=== PATIENT | male | born 1980 ===

== ENCOUNTER 2019-02-26 12:05 | Outpatient (CLI) | payer BC, SELFPAY ==
--- NOTE | 2019-02-26 09:00 | DI.US_ITS ---
SYMPTOM/DIAGNOSIS: DISTAL MEDIAL FIRM MASS 3 X 1.5 CM EPITROCHLEAR NOTE? MASS SOFT TISSUE RT UE R22.31 ULTRASOUND SOFT TISSUES MEDIAL ASPECT RIGHT ELBOW: There is an apparent complex vascular mass on the right medial distal humerus measuring 1.4 x 0.6 x 1.2 cm which may represent a lymph node. There is some peripheral edema in this region. SUMMARY: Question lymph node vs small mass in the epitrochlear soft tissues of the right medial elbow.
== END 2019-02-26 12:25 ==
PROVIDERS: PCP Family Medicine; Visit Provider Family Medicine
DX: R22.31 Localized swelling, mass and lump, right upper limb (principal); M79.89 Other specified soft tissue disorders
CPT/HCPCS: 76881

== ENCOUNTER 2019-03-31 09:43 | Emergency (ER) | payer BC, SELFPAY ==
[2019-03-31 09:46] VITALS: BP 139/90; PULSE 81; RESP 16; TEMP 36.5; O2SAT 98
--- NOTE | 2019-03-31 10:08 | ED.GENADUL_ITS ---
Discharge Plan Disposition Patient Disposition: HOME Condition: Stable Discharge Details Chief Complaint: AnimalBite Clinical Impression: Dog bite, Encounter for prophylactic rabies immune globin Primary Care Provider: Roni Penaloza ED Provider: Marni Stevenson Home Meds and New Rx's Prescriptions: New amoxicillin-pot clavulanate [Augmentin] 875-125 mg tablet 1 tab PO BID 10 Days Qty: 20 RF: 0 Discharge Instructions Instructions: Rabies Immune Globulin (Injection), Animal Bite (ED), Rabies Vaccine (ED) Additional Instructions: Keep wound clean and dry. Apply the topical antibiotic ointment twice daily as needed. Return to the infusion center on the dates indicated on your form for the additional rabies vaccine injections. Follow-up with your primary care doctor next week for reevaluation. Return immediately to the emergency department if you develop any worsening or new concerning symptoms. Discharge Data Discharge Physician: Marni Stevenson Medical Decision Making 38-year-old male with no significant past medical history who presents for evaluation of dog bite and possible rabies immunization. Patient was scratched on his forearms and bit on his left hand by an unknown dog while riding his bike yesterday. He states the dog appeared to be acting appropriately and appears consistent with a provoked dog bite as he was attempting to pull the dog away from two little kids passing by. Patient's last tetanus 2011. Patient was seen at [facility] this morning and advised to come to the ER for evaluation and possible rabies vaccine. Discussed with patient at length that there is a low risk of transmission of rabies by dogs in the [place] but depending on his comfort level, we can proceed with the rabies immunization if desired. Patient would like the rabies prophylaxis at this time. Rabies immunoglobulin and first vaccine dose given h ere. Form was completed for day 3, 7 and 14 after discussion with pharmacy and per the CDC recommendations. Left hand wound appears clean without evidence of infection. Patient was offered a left hand x-ray but declined stating he does not think there is any fracture or foreign body. His forearm abrasions are very superficial. He was given a dose of Augmentin here as well as prescription. He was given a Boostrix dose as the dog is unknown and wound may be contaminated since his last tetanus was 2011. Advised to follow-up with his primary care doctor for reevaluation next week and to return here at any time if worse. Medical Records Medical records reviewed: Yes I reviewed the patient's medical records. HPI General Mode of arrival: ambulatory . Date/Time Provider Initiated Documentation: 03/31/19 09:54 . Limitations to Documentation: no limitations . Information obtained by: patient . HPI Narrative: Patient is a 38-year-old male with no significant past medical history who presents for evaluation of dog bite. Patient states he was biking yesterday when he was attempting to pull the dog away from to little kids passing by and the dog scratched both of his forearms and bit his left hand. Patient states he is unfamiliar with the dog and is never seen him before. He states he then washed his hands approximately 10 minutes later after his bike ride. He followed up with his primary care doctor today who recommended a tetanus and to go to the emergency department for evaluation and possible rabies prophylaxis as the dog is unknown. Patient denies any fever. He states the dog appeared to be acting appropriately without any signs of abnormal aggression. Related Data Home Medications Medication Instructions Recorded Confirmed amoxicillin-pot clavulanate 1 tab PO BID 10 Days #20 tab 03/31/19 [Augmentin] Previous Rx's Medication Instructions Recorded amoxicillin-pot clavulanate 1 tab PO BID 10 Days #20 tab 03/31/19 [Augmentin] Allergies Allergy/AdvReac Type Severity Reaction Status Date / Time No Known Allergies Allergy Unverified 02/25/19 08:39 General Stated Complaint: AnimalBite CASSIDY: 4 Review of Systems Review of Systems All systems reviewed & are unremarkable except as noted in HPI and below Constitutional Reports as per HPI, Denies chills and Denies fever(s) Eyes Denies blurry vision ENT Denies dizziness, Denies sore throat and Denies throat swelling Cardiovascular Denies chest pain and Denies dyspnea Respiratory Denies cough and Denies dyspnea Gastrointestinal Denies abdominal pain, Denies diarrhea and Denies vomiting Genitourinary Denies hematuria and Denies dysuria Musculoskeletal Denies back pain and Denies numbness Integumentary/Breasts Denies lesions and Denies rash Neurologic Denies dizziness, Denies focal weakness and Denies numbness Allergic/Immunologic Denies throat swelling [facility] Medical History No significant past medical history (Acute) Surgical History Lasik eye surgery Family History Mother Personal history of malignant neoplasm Father No problems noted. Sister No problems noted. Brother No problems noted. Grandfather Diabetes Personal history of malignant neoplasm Grandfather Essential hypertension Heart disease Hyperlipidemia Grandmother No problems noted. Grandmother No problems noted. Exam Const General: cooperative, healthy appearing and no acute distress HENMT Head: normal to inspection Mouth: oral mucosae normal Eyes General: appearance normal, both eyes and all related structures Neck Neck: normal visual inspection Resp Effort & Inspection: normal respiratory effort and able to speak in complete sentences Cardio Rate: regular rate Skin General skin exam: no rashes or lesions noted Neuro General: alert, awake and oriented x3 Motor: muscle tone normal throughout Extrem Other: Superficial abrasions consistent with scratches noted to bilateral dorsal forearms. There is a 4 mm laceration consistent with puncture wound to the left palmar hand. There is no tenderness, edema, erythema or ecchymosis. No bony deformity. Cap refill less than 2 seconds. Left radial and ulnar pulses intact. Psych Appearance: grossly normal Affect: normal affect Course Vital Signs Temperature 97.7 F 03/31/19 09:46 Pulse 81 03/31/19 09:46 Respiratory Rate 16 03/31/19 09:46 Blood Pressure 139/90 03/31/19 09:46 Pulse Oximetry 98 03/31/19 09:46 Temperature 97.7 F 03/31/19 09:46 Temperature Source Temporal Artery Scan 03/31/19 09:46 Pulse 81 03/31/19 09:46 Respiratory Rate 16 03/31/19 09:46 Blood Pressure 139/90 03/31/19 09:46 Blood Pressure Position Supine 03/31/19 09:46 Pulse Oximetry 98 03/31/19 09:46 Oxygen Delivery Method Room Air 03/31/19 09:46 Oxygen Flow Rate 0 03/31/19 09:46
--- NOTE | 2019-03-31 10:48 | NUR.NOTE ---
Nursing Note: Rabies vaccination orders faxed to Infusion Room. Maite Jacobo.
[2019-03-31] MEDS: Rabies Immune Globulin 1,500 UNIT/5 ML VIAL 1600 UNITS IM (11:06)
[2019-03-31] MEDS: Amoxicillin 875/Clav. 125 TAB PO (11:15)
--- NOTE | 2019-03-31 17:56 | NUR.NOTE ---
Nursing Note: Faxed report form to [facility]. Maite Jacobo. Fax [phone]
== END 2019-03-31 11:17 | disposition home or self-care (01) ==
PROVIDERS: Emergency Provider Physician Assistant; PCP Family Medicine
DX: S61.452A Open bite of left hand, initial encounter (principal); S50.819A Abrasion of unspecified forearm, initial encounter; W54.0XXA Bitten by dog, initial encounter; Z29.14 Encounter for prophylactic rabies immune globulin
CPT/HCPCS: 90471; 96372; 99284; 90675

== ENCOUNTER 2019-04-07 01:19 | Outpatient (RCR) | payer BC, SELFPAY | END 2019-04-11 23:59 | disposition home or self-care (01) | LOC: INF 01:19 | PROVIDERS: PCP Family Medicine; Visit Provider Physician Assistant | DX: Z20.3 Contact with and (suspected) exposure to rabies (principal) | CPT/HCPCS: 96372; 90675 ==

== ENCOUNTER 2019-04-14 00:54 | Outpatient (RCR) | payer BC, SELFPAY | END 2019-05-11 23:59 | disposition home or self-care (01) | LOC: INF 00:54 | PROVIDERS: PCP Family Medicine; Visit Provider Physician Assistant | DX: Z20.3 Contact with and (suspected) exposure to rabies (principal) | CPT/HCPCS: 96372; 90675 ==